=== PATIENT | male | born 1970 | race Caucasian/White ===

== ENCOUNTER 2016-11-24 19:11 | Emergency (ER) | payer BC, OTHER ==
[~2016-11-24] VITALS: Ht 167.6 cm; Wt 86.2 kg
[2016-11-24 19:16] VITALS: BP_SYST 126
--- NOTE | 2016-11-24 19:16 | NUR ---
Placed pt in Bed 5 to gown for exam
[2016-11-24] MEDS ORDERED: cefTRIAXone 1 GM IVPB PREMIX 50 ML IV ONE (20:00)
[2016-11-24] MEDS ORDERED: ONDANSETRON HCL 4 MG/2 ML VIAL IVP ONE (20:00)
[2016-11-24] MEDS ORDERED: MORPHINE 4 MG/ML INJ. SYRINGE IVP ONE (20:00)
[2016-11-24] MEDS ORDERED: VANCOMYCIN HCL 1,000 MG in NS 250 ML IV ONE (20:00)
[2016-11-24] MEDS ORDERED: VANCOMYCIN HCL 1000 MG/VIAL IV ONE (20:25)
[2016-11-24 20:29] LABS: BASOPHILS # (AUTO) 0.1 K/uL (0.0-0.2); BASOPHILS % (AUTO) 0.6 % (0.0-2.0); EOSINOPHILS # (AUTO) 0.4 K/uL (0.0-0.4); HEMATOCRIT 40.1 % (36-54); LYMPHOCYTES # (AUTO) 2.5 K/uL (1.0-5.5); LYMPHOCYTES % (AUTO) 29.7 % (20.5-51.5); MEAN CORPUSCULAR HEMOGLOBIN 30 pg (27-31); MEAN CORPUSCULAR HGB CONC 35 % (32-36); MEAN CORPUSCULAR VOLUME 85 fL (79.0-98.0); MONOCYTES # (AUTO) 0.6 K/uL (0.0-1.0); MONOCYTES % (AUTO) 6.9 % (1.7-9.3); NEUTROPHILS # (AUTO) 4.9 K/uL (1.8-7.7); NEUTROPHILS % (AUTO) 57.8 % (40.0-70.0); PLATELET COUNT (AUTO) 283 K/uL (130-430); WHITE BLOOD COUNT (AUTO) 8.5 K/uL (4.8-10.8)
[2016-11-24 20:43] LABS: CREATININE 1.59 mg/dL (0.55-1.30); POTASSIUM 3.7 mmol/L (3.5-5.1)
[2016-11-24 20:46] LABS: TOTAL BILIRUBIN 0.3 mg/dL (0.0-1.0); TOTAL PROTEIN, SERUM 7.7 g/dL (6.4-8.3)
--- NOTE | 2016-11-24 20:50 | NUR ---
ER ALBIN Montero at bedside examining patient.
--- NOTE | 2016-11-24 20:50 | NUR ---
Pt A&O x 4, c/o pain 8/10 to his lower right calf. His tattoo on the lower right calf appears swollen, red and painful to touch. Pt denies fever, sob, chest pain, or N/V/D. MD aware. Continue to monitor.
--- NOTE | 2016-11-24 21:00 | NUR ---
# 20 gauge angiocath placed to R AC. Use of asceptic technique. Opsite placed over site. Blood return noted. Flushed with 10 cc of normal saline. No evidence of infiltration noted. Patient tolerated well.
[2016-11-24 23:33] VITALS: BP_SYST 114
--- NOTE | 2016-11-24 23:33 | NUR ---
Patient given written and verbal discharge instructions and verbalizes understanding. ER LICENSED VETERINARY TECHNICIAN discussed with patient the results and treatment provided. Patient in stable condition. ID arm band removed. IV catheter removed intact and dressing applied, no active bleeding. Rx of doxycycline, motrin, and mupirocin given. Patient educated on pain management and to follow up with PMD. Pain Scale 0/10. Opportunity for questions provided and answered.
--- NOTE | 2016-11-24 23:33 | NUR ---
Patient does not wish to proceed with medical care recommended by Lon TALAMANTES. Patient given information related to possible complications, up to and including , which could occur as a result of leaving hospital at this time. Patient verbalizes understanding of risks involved leaving against medical advice. Patient has signed AMA form.
== END 2016-11-24 23:33 | disposition home or self-care (01) ==
LOC: SED 19:11
DX: L03.115 Cellulitis of right lower limb (principal)
CPT/HCPCS: 36415; 80053; 83605; 85025; 87040; 96365; 96368; 96375; 99285; J0696; J2270; J2405; J3370; J7050

== ENCOUNTER 2016-11-25 17:04 | Emergency (ER) | payer BC ==
[~2016-11-25] VITALS: Ht 167.6 cm; Wt 86.2 kg
[2016-11-25 17:38] VITALS: BP_SYST 124
--- NOTE | 2016-11-25 17:50 | NUR ---
pt. to bed 8 assumed pt. care
--- NOTE | 2016-11-25 17:55 | NUR ---
Dr. Beck at bedside examining the pt.
--- NOTE | 2016-11-25 18:00 | NUR ---
PT. TO ER [facility] HERE TODAY FOR WOUND CHECK STATES HE WAS SEEN [facility] YESTERDAY BY CHRISTINE PATIENT INSURANCE CLERK WAS TOLD TO RETURN FOR ABX THERAPY, C/P PAIN 5/10 RIGHT LEG, SKIN NON INTAKE ON AFFECTED AREA REDNESS AND SWELLING PRESENT
[2016-11-25] MEDS ORDERED: SULFAMETHOXAZOLE/TRIMETHOPR DS 1 TABLET PO ONE (18:15)
[2016-11-25] MEDS ORDERED: ceFAZolin SODIUM 1 GM VIAL IM ONE (18:15)
[2016-11-25 18:30] VITALS: BP_SYST 130
--- NOTE | 2016-11-25 18:30 | NUR ---
Patient given written and verbal discharge instructions and verbalizes understanding. ER MD DR. ARTIS discussed with patient the results and treatment provided. Patient in stable condition. ID arm band removed. Rx of kEFLEX AND BACTRIM given. Patient educated on pain management and to follow up with PMD. Pain Scale 0/10 Opportunity for questions provided and answered.
== END 2016-11-25 18:30 | disposition home or self-care (01) ==
LOC: SED 17:04
DX: L03.115 Cellulitis of right lower limb (principal)
CPT/HCPCS: 96372; 99283; J0690